=== PATIENT | female | born 1975 | race Hispanic/Latino ===

== ENCOUNTER 2022-04-01 17:53 | Emergency (ER) | payer OTHER ==
[~2022-04-01] VITALS: Ht 157.5 cm; Wt 107.5 kg
[2022-04-01] MEDS ORDERED: SODIUM CHLORIDE 0.9% 1000ML 1,000 ML IV ONE (18:45)
[2022-04-01] MEDS ORDERED: KETOROLAC TROMETHAMINE 30 MG/ML VIAL IV STA (19:27)
[2022-04-01] MEDS ORDERED: ONDANSETRON HCL INJ 2MG/ML 2ML 2 MG/ML VIAL IV STA (19:27)
[2022-04-01] MEDS ORDERED: KETOROLAC TROMETHAMINE 30 MG/ML VIAL ONE (19:49)
[2022-04-01] MEDS ORDERED: ONDANSETRON HCL INJ 2MG/ML 2ML 2 MG/ML VIAL ONE (19:50)
[2022-04-01] MEDS ORDERED: SODIUM CHLORIDE 0.9% 1000ML 1,000 ML ONE (19:50)
[2022-04-01] MEDS ORDERED: IOPAMIDOL 370 MG/ML 100 ML INFUS..BTL INJ ONE (20:11)
[2022-04-01] MEDS ORDERED: NAPROSYN500 MG PO (21:48)
[2022-04-01] MEDS ORDERED: CYCLOBENZAPRINE10 MG PO (21:49)
[2022-04-01 22:12] VITALS: BP 130/78
[2022-04-05] MEDS ORDERED: ELIQUIS5 MG PO (11:24)
== END 2022-04-01 22:12 | disposition home or self-care (01) ==
LOC: FSED 17:57
DX: R10.32 Left lower quadrant pain (principal); M54.50 Low back pain, unspecified; I10 Essential (primary) hypertension
CPT/HCPCS: 74177; 80048; 80076; 81003; 81025; 85025; 96374; 96376; 99284; J1885; J2405; J7030; Q9967

== ENCOUNTER 2022-04-04 11:17 | Observation (INO) | payer OTHER ==
[~2022-04-04] VITALS: Ht 157.5 cm; Wt 107.5 kg
[~2022-04-04 11:17] MED LIST: CYCLOBENZAPRINE10 MG PO; NAPROSYN500 MG PO
[2022-04-04 12:15] LABS: BASOPHILS % 0.3 % (0.0-1.0); EOSINOPHILS % 0.2 % (0.0-6.0); HEMATOCRIT 38.2 % (34.2-44.1); HEMOGLOBIN 12.5 g/dL (12.0-16.0); LYMPHOCYTES # (AUTO) 1.4 (1.0-3.2); LYMPHOCYTES % 11.8 % (18.0-39.1); MEAN CORPUSCULAR HEMOGLOBIN 30.3 pg (28-32); MEAN CORPUSCULAR HGB CONC 32.7 g/dL (31-35); MEAN CORPUSCULAR VOLUME 92.5 fL (81-99); MONOCYTES # (AUTO) 0.8 (0.2-0.8); MONOCYTES % 6.8 % (4.4-11.3); NEUTROPHILS # (AUTO) 9.3 (2.1-6.9); NEUTROPHILS % 80.5 % (38.7-80.0); PLATELET COUNT 290 x10e3/uL (140-360); RED BLOOD COUNT 4.13 x10e6/uL (3.6-5.1); RED CELL DISTRIBUTION WIDTH 13.8 % (11.7-14.4)
[2022-04-04 12:27] LABS: INR 0.91; PARTIAL THROMBOPLASTIN TIME 27.5 seconds (23.8-35.5); PROTHROMBIN TIME 13.1 seconds (11.9-14.5)
[2022-04-04 12:33] LABS: ALANINE AMINOTRANSFERASE 77 IU/L (0-55); ALBUMIN 3.6 g/dL (3.5-5.0); ALBUMIN/GLOBULIN RATIO 0.8 (0.8-2.0); ALKALINE PHOSPHATASE 110 IU/L (40-150); ANION GAP 14.8 mmol/L (8-16); BLOOD UREA NITROGEN 8 mg/dL (7-26); BUN/CREATININE RATIO 13 (6-25); CALCIUM 8.8 mg/dL (8.4-10.2); CARBON DIOXIDE 22 mmol/L (22-29); CHLORIDE 105 mmol/L (98-107); CREATINE KINASE 67 IU/L (29-168); CREATININE, SERUM 0.64 mg/dL (0.57-1.11); GLUCOSE 103 mg/dL (74-118); POTASSIUM 3.8 mmol/L (3.5-5.1); SODIUM 138 mmol/L (136-145)
[2022-04-04] MEDS ORDERED: HEPARIN 25,000 UNIT DRIP IV ONE ×2 (13:24→13:25)
[2022-04-04] MEDS ORDERED: HEPARIN SOD (PORCINE) 5,000 UNIT/ML VIAL IV ONE (13:30)
[2022-04-04] MEDS ORDERED: HEPARIN 25,000 UNIT 1,300 UNIT in DEXTROSE 5% 250ML 250 ML IV SCH (13:40)
[2022-04-04] MEDS ORDERED: IOPAMIDOL 370 MG/ML 100 ML INFUS..BTL INJ ONE (13:41)
[2022-04-04] MEDS ORDERED: SODIUM CHLORIDE 0.9% 1000ML 1,000 ML IV SCH (14:15)
[2022-04-04 16:21] LABS: CLARITY,URINE SL CLOUDY (CLEAR); COLOR,URINE YELLOW (YELLOW); KETONES,URINE 2+ (NEGATIVE); LEUKOCYTE ESTERASE ,URINE NEGATIVE (NEGATIVE); NITRITE,URINE NEGATIVE (NEGATIVE); PROTEIN,URINE DIPSTICK NEGATIVE (NEGATIVE); URINE UROBILINOGEN 0.2 mg/dL (0.2 - 1)
[2022-04-04 16:30] LABS: BACTERIA,URINE FEW /HPF; EPITHELIAL CELLS,URINE MODERATE /LPF; WBC,URINE (MAN) 0-5 /HPF (0-5)
[2022-04-04 17:19] VITALS: BP 160/91
[2022-04-04 17:42] VITALS: BP 160/91
[2022-04-04 18:03] VITALS: BP 140/87
[2022-04-04] MEDS ORDERED: ACETAMINOPHEN 325 MG TAB PO PRN (18:30)
[2022-04-04 20:00] VITALS: BP 121/84
[2022-04-04 20:33] LABS: CREATINE KINASE 66 IU/L (29-168)
[2022-04-04 21:27] VITALS: BP 121/84
[2022-04-04 21:30] VITALS: BP 121/84
[2022-04-04] MEDS ORDERED: ACETAMINOPHEN/CODEINE 300MG - 30MG TAB PO PRN (21:30)
[2022-04-04] MEDS ORDERED: HYDRALAZINE HCL 20 MG/ML VIAL IV PRN (21:30)
[2022-04-04] MEDS: ONDANSETRON HCL INJ 2MG/ML 2ML 2 MG/ML VIAL IV PRN (21:37)
[2022-04-04] MEDS: Morphine 2mg Syringe 2 MG/ML SYR IV PRN (21:37)
[2022-04-04] MEDS: ENOXAPARIN SODIUM INJ 100 MG/ML SYR SC SCH (21:37)
[2022-04-05] VITALS: BP 109/69
[2022-04-05 04:00] VITALS: BP 107/61
[2022-04-05] MEDS: ONDANSETRON HCL INJ 2MG/ML 2ML 2 MG/ML VIAL IV PRN (05:44)
[2022-04-05] MEDS: Morphine 2mg Syringe 2 MG/ML SYR IV PRN ×2 (05:44→12:55)
[2022-04-05 06:04] LABS: BASOPHILS % 0.4 % (0.0-1.0); EOSINOPHILS # (AUTO) 0.1 (0.0-0.4); EOSINOPHILS % 1.6 % (0.0-6.0); HEMATOCRIT 34.7 % (34.2-44.1); HEMOGLOBIN 11.4 g/dL (12.0-16.0); LYMPHOCYTES # (AUTO) 1.7 (1.0-3.2); MEAN CORPUSCULAR HEMOGLOBIN 29.9 pg (28-32); MEAN CORPUSCULAR HGB CONC 32.9 g/dL (31-35); MEAN CORPUSCULAR VOLUME 91.1 fL (81-99); MONOCYTES % 10.9 % (4.4-11.3); NEUTROPHILS % 67.7 % (38.7-80.0); PLATELET COUNT 258 x10e3/uL (140-360); RED BLOOD COUNT 3.81 x10e6/uL (3.6-5.1); RED CELL DISTRIBUTION WIDTH 13.9 % (11.7-14.4)
[2022-04-05 06:20] LABS: ANION GAP 14.8 mmol/L (8-16); BLOOD UREA NITROGEN 7 mg/dL (7-26); BUN/CREATININE RATIO 12 (6-25); CALCIUM 8.5 mg/dL (8.4-10.2); CARBON DIOXIDE 24 mmol/L (22-29); CHLORIDE 106 mmol/L (98-107); CREATININE, SERUM 0.57 mg/dL (0.57-1.11); GLUCOSE 86 mg/dL (74-118); POTASSIUM 3.8 mmol/L (3.5-5.1); SODIUM 141 mmol/L (136-145)
[2022-04-05 07:32] VITALS: BP 107/61
[2022-04-05 08:28] VITALS: BP 124/78
[2022-04-05] MEDS ORDERED: AMLODIPINE BESYLATE 5 MG TAB PO SCH (09:00)
[2022-04-05] MEDS: ENOXAPARIN SODIUM INJ 100 MG/ML SYR SC SCH (09:31)
[2022-04-05] MEDS ORDERED: ELIQUIS5 MG PO (11:24)
[2022-04-05 12:17] VITALS: BP 108/72
== END 2022-04-05 13:23 | disposition home or self-care (01) ==
LOC: ER 11:20 → ERHOLD 14:05 → INTOOBSV 14:05 → MED/SURG2 17:04
PROVIDERS: ADMIT Internal Medicine; ATTEND Internal Medicine
DX: I82.412 Acute embolism and thrombosis of left femoral vein (principal); I82.432 Acute embolism and thrombosis of left popliteal vein; I82.442 Acute embolism and thrombosis of left tibial vein; E66.01 Morbid (severe) obesity due to excess calories; Z68.41 Body mass index [BMI] 40.0-44.9, adult; Z20.822 Contact with and (suspected) exposure to COVID-19
CPT/HCPCS: 0223U; 36415; 71045; 71260; 80048; 80053; 81001; 82550; 82553; 83690; 84484; 84702; 85025; 85610; 85730; 93005; 93971; 94799; 99284; G0378; J1644; J1650; J2270; J2405; J7030; Q9967

== ENCOUNTER 2022-04-07 20:28 | Observation (INO) | payer OTHER ==
[~2022-04-07] VITALS: Ht 157.5 cm; Wt 107.5 kg
[~2022-04-07 20:28] MED LIST changes: +ELIQUIS5 MG PO
[2022-04-07] MEDS ORDERED: ONDANSETRON HCL INJ 2MG/ML 2ML 2 MG/ML VIAL IV STA (20:46)
[2022-04-07] MEDS ORDERED: Morphine 4mg INJECTION 4 MG/ML INJ IV ONE (21:00)
[2022-04-07] MEDS ORDERED: ACETAMINOPHEN 325 MG TAB PO ONE (21:00)
[2022-04-07] MEDS ORDERED: SODIUM CHLORIDE 0.9% 1000ML 1,000 ML IV ONE (21:00)
[2022-04-07 21:02] LABS: BASOPHILS % 0.2 % (0.0-1.0); EOSINOPHILS % 0.3 % (0.0-6.0); HEMATOCRIT 36.1 % (34.2-44.1); LYMPHOCYTES # (AUTO) 1.9 (1.0-3.2); LYMPHOCYTES % 16.7 % (18.0-39.1); MEAN CORPUSCULAR HEMOGLOBIN 30.2 pg (28-32); MEAN CORPUSCULAR HGB CONC 33.2 g/dL (31-35); MEAN CORPUSCULAR VOLUME 90.9 fL (81-99); MONOCYTES % 9.1 % (4.4-11.3); NEUTROPHILS # (AUTO) 8.4 (2.1-6.9); NEUTROPHILS % 73.4 % (38.7-80.0); PLATELET COUNT 352 x10e3/uL (140-360); RED BLOOD COUNT 3.97 x10e6/uL (3.6-5.1); RED CELL DISTRIBUTION WIDTH 13.4 % (11.7-14.4)
[2022-04-07] MEDS ORDERED: ACETAMINOPHEN 325 MG TAB ONE (21:05)
[2022-04-07] MEDS ORDERED: SODIUM CHLORIDE 0.9% 1000ML 1,000 ML ONE (21:06)
[2022-04-07 21:16] LABS: INR 1.02; PROTHROMBIN TIME 14.3 seconds (11.9-14.5)
[2022-04-07 21:17] LABS: PARTIAL THROMBOPLASTIN TIME 32.9 seconds (23.8-35.5)
[2022-04-07 21:23] LABS: CREATINE KINASE 35 IU/L (29-168)
[2022-04-07 21:25] LABS: ALBUMIN/GLOBULIN RATIO 0.6 (0.8-2.0); ANION GAP 15.7 mmol/L (8-16); CALCIUM 9.1 mg/dL (8.4-10.2); CREATININE, SERUM 0.7 mg/dL (0.57-1.11); POTASSIUM 3.7 mmol/L (3.5-5.1)
[2022-04-07] MEDS ORDERED: IOPAMIDOL 370 MG/ML 100 ML INFUS..BTL INJ ONE (21:45)
[2022-04-07 22:43] LABS: CLARITY,URINE CLEAR (CLEAR); COLOR,URINE YELLOW (YELLOW)
[2022-04-07 22:44] LABS: KETONES,URINE NEGATIVE (NEGATIVE); LEUKOCYTE ESTERASE ,URINE NEGATIVE (NEGATIVE); NITRITE,URINE NEGATIVE (NEGATIVE); PROTEIN,URINE DIPSTICK NEGATIVE (NEGATIVE); URINE UROBILINOGEN 0.2 mg/dL (0.2 - 1)
[2022-04-07 22:54] LABS: RBC,URINE 0-5 /HPF (0-5); WBC,URINE (MAN) 0-5 /HPF (0-5)
[2022-04-07 22:55] LABS: BACTERIA,URINE MODERATE /HPF; EPITHELIAL CELLS,URINE MANY /LPF
[2022-04-07] MEDS ORDERED: ACETAMINOPHEN 325 MG TAB PO PRN (23:15)
[2022-04-08] VITALS (8 sets, daily range): BP systolic 108–132; BP diastolic 63–77
[2022-04-08] MEDS: SODIUM CHLORIDE 0.9% 1000ML 1,000 ML IV SCH ×2 (01:30→09:28)
[2022-04-08] MEDS ORDERED: AMLODIPINE BESYL5 MG PO (01:33)
[2022-04-08] MEDS: Morphine 4mg INJECTION 4 MG/ML INJ IV PRN ×5 (01:51→23:20)
[2022-04-08 05:50] LABS: BASOPHILS % 0.4 % (0.0-1.0); EOSINOPHILS # (AUTO) 0.1 (0.0-0.4); EOSINOPHILS % 0.9 % (0.0-6.0); HEMATOCRIT 32.1 % (34.2-44.1); HEMOGLOBIN 10.4 g/dL (12.0-16.0); LYMPHOCYTES # (AUTO) 1.3 (1.0-3.2); LYMPHOCYTES % 13.2 % (18.0-39.1); MEAN CORPUSCULAR HGB CONC 32.4 g/dL (31-35); MEAN CORPUSCULAR VOLUME 92.5 fL (81-99); MONOCYTES % 10.2 % (4.4-11.3); NEUTROPHILS # (AUTO) 7.6 (2.1-6.9); NEUTROPHILS % 74.8 % (38.7-80.0); PLATELET COUNT 306 x10e3/uL (140-360); RED BLOOD COUNT 3.47 x10e6/uL (3.6-5.1); RED CELL DISTRIBUTION WIDTH 13.6 % (11.7-14.4)
[2022-04-08 06:30] LABS: ALBUMIN 2.7 g/dL (3.5-5.0); ALBUMIN/GLOBULIN RATIO 0.7 (0.8-2.0); ANION GAP 11.9 mmol/L (8-16); CALCIUM 8.4 mg/dL (8.4-10.2); CREATININE, SERUM 0.59 mg/dL (0.57-1.11); POTASSIUM 3.9 mmol/L (3.5-5.1)
[2022-04-08] MEDS ORDERED: APIXABAN 5 MG TABLET PO SCH (09:00)
[2022-04-08] MEDS ORDERED: APIXABAN 5 MG TABLET PO ONE (11:00)
[2022-04-08] MEDS ORDERED: IOPAMIDOL 370 MG/ML 100 ML INFUS..BTL INJ ONE (18:27)
[2022-04-08] MEDS: APIXABAN 5 MG TABLET PO SCH (21:00)
[2022-04-08] MEDS: ONDANSETRON HCL INJ 2MG/ML 2ML 2 MG/ML VIAL IV PRN (23:21)
[2022-04-09] VITALS: BP 101/52
[2022-04-09 04:00] VITALS: BP 114/57
[2022-04-09] MEDS: Morphine 4mg INJECTION 4 MG/ML INJ IV PRN (04:52)
[2022-04-09] MEDS: ONDANSETRON HCL INJ 2MG/ML 2ML 2 MG/ML VIAL IV PRN (04:53)
[2022-04-09 04:55] LABS: BASOPHILS % 0.3 % (0.0-1.0); EOSINOPHILS # (AUTO) 0.1 (0.0-0.4); EOSINOPHILS % 0.6 % (0.0-6.0); HEMATOCRIT 31.8 % (34.2-44.1); HEMOGLOBIN 10.6 g/dL (12.0-16.0); LYMPHOCYTES # (AUTO) 1.2 (1.0-3.2); LYMPHOCYTES % 11.3 % (18.0-39.1); MEAN CORPUSCULAR HEMOGLOBIN 29.6 pg (28-32); MEAN CORPUSCULAR HGB CONC 33.3 g/dL (31-35); MEAN CORPUSCULAR VOLUME 88.8 fL (81-99); MONOCYTES # (AUTO) 1.2 (0.2-0.8); NEUTROPHILS # (AUTO) 8.2 (2.1-6.9); NEUTROPHILS % 76.3 % (38.7-80.0); PLATELET COUNT 345 x10e3/uL (140-360); RED BLOOD COUNT 3.58 x10e6/uL (3.6-5.1); RED CELL DISTRIBUTION WIDTH 13.7 % (11.7-14.4)
[2022-04-09 05:26] LABS: ALBUMIN 2.5 g/dL (3.5-5.0); ANION GAP 13.6 mmol/L (8-16); BILIRUBIN,DIRECT 0.2 mg/dL (0.0-0.5); CALCIUM 8.7 mg/dL (8.4-10.2); CREATININE, SERUM 0.55 mg/dL (0.57-1.11); POTASSIUM 3.6 mmol/L (3.5-5.1)
[2022-04-09 08:20] VITALS: BP 116/70
[2022-04-09] MEDS: APIXABAN 5 MG TABLET PO SCH (08:22)
[2022-04-09] MEDS: HYDROCODONE/APAP 5MG-325MG TAB PO PRN ×2 (08:23→12:07)
[2022-04-09 08:30] VITALS: BP 116/70
[2022-04-09] MEDS ORDERED: AMLODIPINE BESYLATE 5 MG TAB PO SCH (09:00)
[2022-04-09 12:22] VITALS: BP 121/74
[2022-04-09] MEDS ORDERED: HYDROCODON-ACE1 EA11 PO (13:53)
== END 2022-04-09 14:44 | disposition home or self-care (01) ==
LOC: ER 20:37 → ERHOLD 23:03 → MED/SURG3 04-08 00:10
PROVIDERS: ADMIT Internal Medicine; ATTEND Internal Medicine
DX: I82.422 Acute embolism and thrombosis of left iliac vein (principal); U09.9 Post COVID-19 condition, unspecified; E66.01 Morbid (severe) obesity due to excess calories; Z68.41 Body mass index [BMI] 40.0-44.9, adult; Z86.718 Personal history of other venous thrombosis and embolism; I26.99 Other pulmonary embolism without acute cor pulmonale; I10 Essential (primary) hypertension
CPT/HCPCS: 36415; 71260; 74177; 80048; 80053; 80076; 81001; 82550; 82553; 83540; 83605; 84466; 84484; 85025; 85610; 85730; 87040; 93005; 93306; 99284; G0378; J0690; J2270; J2405; J7030; Q9967

== ENCOUNTER 2023-01-30 15:56 | Emergency (ER) | payer OTHER ==
[~2023-01-30] VITALS: Ht 157.5 cm; Wt 95.7 kg
[~2023-01-30 15:56] MED LIST changes: +AMLODIPINE BESYL5 MG PO; +HYDROCODON-ACE1 EA11 PO
[2023-01-30 18:16] LABS: BASOPHILS % 0.4 % (0.0-1.0); EOSINOPHILS # (AUTO) 0.1 (0.0-0.4); EOSINOPHILS % 0.8 % (0.0-6.0); HEMOGLOBIN 12.6 g/dL (12.0-16.0); LYMPHOCYTES # (AUTO) 2.1 (1.0-3.2); LYMPHOCYTES % 28.9 % (18.0-39.1); MEAN CORPUSCULAR HEMOGLOBIN 29.9 pg (28-32); MEAN CORPUSCULAR HGB CONC 33.2 g/dL (31-35); MONOCYTES # (AUTO) 0.5 (0.2-0.8); MONOCYTES % 6.8 % (4.4-11.3); NEUTROPHILS # (AUTO) 4.6 (2.1-6.9); NEUTROPHILS % 62.8 % (38.7-80.0); PLATELET COUNT 264 x10e3/uL (140-360); RED BLOOD COUNT 4.22 x10e6/uL (3.6-5.1)
[2023-01-30 21:31] VITALS: BP 111/68; PULSE 72; RESP 16; TEMP 98.1; O2SAT 100
== END 2023-01-30 21:28 | disposition home or self-care (01) ==
LOC: ER 16:05
DX: N83.291 Other ovarian cyst, right side (principal); R10.31 Right lower quadrant pain; I10 Essential (primary) hypertension; E78.5 Hyperlipidemia, unspecified; Z86.718 Personal history of other venous thrombosis and embolism
CPT/HCPCS: 36415; 76830; 76856; 85025; 93976; 99283